=== PATIENT | female | born 1970 | race Two or more races ===

== ENCOUNTER 2025-04-22 19:34 | Outpatient (REF) | payer OTHER, SELFPAY ==
--- OUTSIDE RECORDS SUMMARY | 2024-09-03 07:30 | XMS_ITS ---
Author Organization [facility] [place] Address [address] [place] [address] Care Team Providers Care Towel Hemmer Name Role Phone Heidi Guo Primary Care Provider Kaya Hughes [phone] REASON FOR VISIT 2 WK F/UP AKIKO, RONNY VELASQUEZ GL 04/08/24 Encounters Encounter Location Date Provider Diagnosis [facility] [place] for Dig[facility]ive [facility] Disease [facility] [address] [facility] [facility] [place] [address] 09/03/2024 Kaya Hughes Plan Of Treatment Next Appt Details Provider Name:Kaya viramontes, 05/09/2025 02:15:00 PM, [address], [address], [place], [address], Provider Name:Heidi pope, 06/02/2025 02:30:00 PM, [address] [place], [address], Progress Notes * Taylor WALTERS MDOB: (55 yo F)Acc No.[id number]:09/03/2024 UNLOCKED PROGRESS NOTE Established Patient: Dena COLBERT Taylor Lyons :?EMMANUELLE EnriqueOB:1970???Age:54 Y ???Sex:FemaleDate:09/03/2024Phone:[phone]:[address] [place] [address], [id number]:Heidi Guo Subjective: * Chief Complaints: * 1 . 2 WK F/UP EEVA HAYNES, GL 04/08/24. * Medical History: Objective: * Vitals: Assessment: Plan: * Treatment: * * Electronic signature of ARSH Enrique, [id number] on 04/22/2025 at 07:39 PM ESTSign off status: PendingVisit Status:?R/S (Rescheduled) * Provider: ARSH Silva Date: 0 09/03/2024 Generated for Printing/Faxing/eTransmitting on:?04/22/2025 07:39 PM EST
--- OUTSIDE RECORDS SUMMARY | 2024-09-30 02:45 | XMS_ITS ---
Author Organization [facility] in [place] Address [address] [place] [address] Care Team Providers Care Truckload Owner Operator Name Role Phone Heidi Guo Primary Care Provider Michoacano Pat [phone] REASON FOR VISIT VCE, ABIGAIL, MELSEA, EVA GUO, DUSTIN 04/08/24 Encounters Encounter Location Date Provider Diagnosis [facility] [address] [facility] [place] [address] 09/30/2024 Michoacano Pat Plan Of Treatment Next Appt Details Provider Name:Kaya viramontes, 05/09/2025 02:15:00 PM, [address], [place], [address], Provider Name:Heidi pope, 06/02/2025 02:30:00 PM, [address] [place], [address], Progress Notes * Taylor WALTERS MDOB: (55 yo F)Acc No.[id number]:09/30/2024 UNLOCKED PROGRESS NOTE OP Note Patient: Dena COLBERT Taylor Lyons :?Michoacano Pat MDDOB:1970???Age:54 Y ???Sex:FemaleDate:09/30/2024Phone:[phone]:[address] [place] [address], [id number]:Heidi Nuñez In:08:27 AM ESTCheck Out: 08:27 AM EST Subjective: * Chief Complaints: * 1 . VCE, ABIGAIL, MELENA, RONNY, AETNA, GL 04/08/24. * Medical History: Objective: * Vitals: Assessment: Plan: * Treatment: * * Electronic signature of Michoacano Pat MD, [id number] on 04/22/2025 at 07:40 PM ESTSign off status: PendingVisit Status:?CHK (Check Out) * Provider: Steph Pat MD Date: 0 09/30/2024 Generated for Printing/Faxing/eTransmitting on:?04/22/2025 07:40 PM EST
--- OUTSIDE RECORDS SUMMARY | 2024-10-22 08:30 | XMS_ITS ---
Author Organization [facility] in [place] Address [address] [place] [address] Care Team Providers Care Horse Rancher Name Role Phone Heidi Guo Primary Care Provider Provider, Lab Unavailable [phone] REASON FOR VISIT NM Encounters Encounter Location Date Provider Diagnosis [facility] [address] [place] [address] 10/22/2024 Lab Provider Plan Of Treatment Next Appt Details Provider Name:Kaya viramontes, 05/09/2025 02:15:00 PM, [address] [place] [place], [place], [address], Provider Name:Heidi pope, 06/02/2025 02:30:00 PM, [address] [place], [address], Progress Notes * Taylor WALTERS MDOB: (55 yo F)Acc No.[id number]:10/22/2024 UNLOCKED PROGRESS NOTE Progress Note Patient: Dena BENTONTaylor MCCAULEY :?Lab ProviderDOB:1970???Age:54 Y???Sex: FemaleDate:10/22/2024Phone:[phone]:[address] [place] [address]Pcp:Heidi A HaynesCheck In:01:31 PM ESTCheck Out:01:46 PM EST Subjective: * Chief Complaints: * 1 . NM. * Medical History: Objective: * Vitals: Assessment: Plan: * Treatment: * * Electronic signature of Lab Provider on 04/22/2025 at 12:48 PM ESTSign off status: PendingVisit Status:?CHK (Check Out) * Provider: Jess whitlock Provider Date: 0 10/22/2024 Generated for Printing/Faxing/eTransmitting on:?04/22/2025 12:48 PM EST
--- OUTSIDE RECORDS SUMMARY | 2025-04-09 08:00 | XMS_ITS | Continuity of Care Document ---
Author Organization [facility] Address [address] [place] [address] [place] [address] Phone Care Team Providers Care Pickle Water Pump Operator Name Role Phone Kobe Cobos MD Unavailable Unavailable Procedures Procedure Date OFFICE/OUTPATIENT VISIT, EST POSTOP FOLLOW-UP VISIT POSTOP FOLLOW-UP VISIT POSTOP FOLLOW-UP VISIT LAP GASTRIC BYPASS/REYNA-EN-Y Gastric Bypass OFFICE/OUTPATIENT VISIT, EST PSYCL TST EVAL PHYS/QHP PSYCL/NRPSYC TST PHY/QHP PSYCL/NRPSYC TST PHY/QHP OFFICE/OUTPATIENT VISIT, [facility] Advance Directives Directive Yes / No Effective Date File Name No Information Encounters Encounter Description Practice Location Reason(s) For Visit Diagnoses Date Provider Providers Copied on Encounter OFFICE/OUTPATI ENT VISIT, EST [facility], [address], [place], [place], [id number], [place] tel:[phone] [facility] No Information Chandrika Bullock. [address], [place], [place], [id number], [place]. tel:[phone] Referring Provider: Kobe Resendiz, [address], [place], [address]. tel:[phone] [facility], [address] [place] [address] [address], [place], [place], [id number], [place] tel:[phone] [facility] No Information Terrence Corbett. [address] [facility] [address], [place], [place], [id number], [place]. tel:[phone] Referring Provider: Chelle Ocampo, [address] [facility] [address], [place], [address]. tel:[phone] [facility], [address] [place] [address] [address], [place], [place], [id number], [place] tel:[phone] [facility] No Information Terrence Corbett. [facility] [address] [facility] [address], [place], [place], [id number], [place]. tel:[phone] Referring Provider: Chelle Ocampo, [address] [place] [address] [address], [place], [address]. tel:[phone] [facility], [address] [place] [address] [address], [place], [place], [id number], [place] tel:[phone] [facility] No Information Terrence Corbett. [address], [place], [place], [id number], [place]. tel:[phone] Referring Provider: Chelle Ocampo, [address] [place] [address] [address], [place], [address]. tel:[phone] [facility], [address] [place] [address] [address], [place], [id number], [place] tel:[phone] [facility] No Information Chandrika Bullock. [address], [place], [place], [address], [place]. tel:[phone] Referring Provider: Kobe Resendiz, [address], [place], [address]. tel:[phone] [facility], [address], [place], [place], [id number], [place] tel:[phone] [facility] No Information Terrence Corbett. [address] [facility] [address], [facility] [place], [id number], [place]. tel:[phone] Referring Provider: Chelle Ocampo, [address], [place], [address]. tel:[phone] OFFICE/OUTPATI ENT VISIT, [facility] mii [facility], [address] [address], [place], [place], [id number], [place] tel:[phone] [facility] No Information Chandrika Bullock. [address], [facility] [place], [id number], [place]. tel:[phone] Referring Provider: Kobe Resendiz, [address] [facility] [address], [place], [address]. tel:[phone] [facility], [address] [facility] [address] [facility] [address], [place], [place], [address], [place] tel:[phone] [facility] No Information Solitario Edmonds. [address], [facility] [place], [id number], [place]. tel:[phone] Referring Provider: Kendal Jerez, [facility] [address] [facility] [address], [place], [address]. tel:[phone] OFFICE/OUTPATI ENT VISIT, [facility] mii [facility], [address] [facility] [address], [facility] [place], [id number], [place] tel:[phone] [facility] No Information Chandrika Bullock. [address], [place], [place], [id number], [place]. tel:[phone] Referring Provider: Kobe Resendiz, [address], [place], [address]. tel:[phone] Family History Family Member Type Diagnosis Age At Onset No Information Payers Payer name Insurance type Covered libertarian ID Sue peace(s) Cindy [id number] Social History Type Description Quantity Date Captured Comments Sex Female Smoking Status No Information Chief Complaint And Reason For Visit No Information Reason For Referral Reason For Referral No Information Plan Of Treatment Date Type Action Status Appointment Taylor Schultz BOOKED History Of Present Illness Encounter Date Complaint History Of Prese nt Illness No Information Functional Status Date Functional Assessmen t No Information Instructions Date Instruction Additional Infor mation No Information Assessments Type Assessment Date No Information Patient Care Teams Name Effective Dates (start - stop) Status Members No Information
--- OUTSIDE RECORDS SUMMARY | 2025-04-22 13:00 | XMS_ITS | Encounter Summary ---
Author Organization [facility] Address [address] [place] [address] Care Team Providers Care Gas Engine Operator Generators Name Role Phone Unavailable Primary Care Provider Unavailabl e Reason for Visit * ReasonCommentsGynecologic Exam Encounter Details DateTypeDepartmentCare Team (Latest Contact Info)Agztmdjenso13/25/2025 1:00 PM ESTOffice Visit [facility] [address] [place] [address] Arnaldo An DO [address] [place] [address] Well woman exam with routine gynecological exam; Encounter for screening mammogram for malignant neoplasm of breast; Postmenopausal state; Pain in female genitalia on intercourse; Atrophic vaginitis Social History Tobacco UseTypesPacks/DayYears UsedDateSmoking Tobacco: NeverSmokeless Tobacco: Never Tobacco Cessation:Counseling Given: Not Answered Alcohol UseStandard Drinks/WeekCommentsNot Currently0 (1 standard drink = 0.6 oz pure alcohol)CommentsNoSex and Gender InformationValueDate RecordedSex Assigned at BirthNot on fileLegal KvrTwtrfy85/15/2023 8:00 PM EDTGender Identity Not on fileSexual OrientationNot on filedocumented as of this encounter Last Filed Vital Signs Vital SignReadingTime TakenCommentsBlood Vtmfvllz147/80106/22/2024 1:26 PM EST Pulse--Temperature--Respiratory Rate--Oxygen Saturation--Inhaled Oxygen Concentration--Ughhyv82.4 kg (186 lb)04/22/2025 1:26 PM ESTHeight--Body Mass Index37.5706/ 2:05 PM EDTdocumented in this encounter Plan of Treatment NameTypePriorityAssociated DiagnosesOrder ScheduleBilateral screening mammogram ImagingRoutine Encounter for screening mammogram for malignant neoplasm of breast Expected: 04/22/2025, Expires: 06/22/2026DEXA bone densityImagingRoutine Postmenopausal state Expected: 04/22/2025 (Approximate), Expires: 04/22/2026THIN PREP TIS PAP AND HR HPV DNAPathology and CytologyRoutine Well woman exam with routine gynecological exam Ordered: 04/22/2025documented as of this encounter Visit Diagnoses Diagnosis Well woman exam with routine gynecological exam Routine gynecological examination Encounter for screening mammogram for malignant neoplasm of breast Postmenopausal state Asymptomatic postmenopausal status (age-related) (natural) Pain in female genitalia on intercourse Dyspareunia Atrophic vaginitis Postmenopausal atrophic vaginitis documented in this encounter
--- OUTSIDE RECORDS SUMMARY | 2025-04-22 19:39 | XMS_ITS | Encounter Summary ---
Author Organization [facility] Address [address] [place] [address] Care Team Providers Care Quality Control Chemist Name Role Phone Unavailable Primary Care Provider Unavailabl e Encounter Details DateTypeDepartmentCare Team (Latest Contact Info)Tjjxqmhdcab62/25/2025Telephone [facility] [address] [place] [phone] Arnaldo An DO [address] [place], [facility] Social History Tobacco UseTypesPacks/DayYears UsedDateSmoking Tobacco: NeverSmokeless Tobacco: NeverAlcohol UseStandard Drinks/WeekCommentsNot Currently0 (1 standard drink = 0.6 oz pure alcohol)CommentsNoSex and Gender InformationValueDate RecordedSex Assigned at BirthNot on fileLegal SmsEmeocu56/15/2023 8:00 PM EDT Gender IdentityNot on fileSexual OrientationNot on filedocumented as of this encounter Miscellaneous Notes * Telephone Encounter - Mary Marino LPN - 04/22/2025 3:51 PM EST New order sent at this time in regards to patient. documented in this encounter Plan of Treatment Not on file documented as of this encounter Visit Diagnoses Diagnosis Unspecified dyspareunia Postmenopause atrophic vaginitis Postmenopausal atrophic vaginitis documented in this encounter
--- OUTSIDE RECORDS SUMMARY | 2025-04-22 19:39 | XMS_ITS | Clinical Summary ---
Author Organization [facility] Address [address] [place] [address] Care Team Providers Care Template Maker Name Role Phone Heidi Guo MD Primary Care Provider [phone] Allergies Active AllergyReactionsCriticalityNoted DateCommentsDiphenhydramine HclOther: See Jymldmgh57/18/2014 Uncontrollable shaking DukmclnbHiwk37/18/2014Penicillin GRas06/15/2013CodeineShortness of Breath 04/15/2014 Medications * This document contains information received from the source organization and may not represent a complete record from that organization. MedicationSigDispense QuantityRefillsLast FilledStart DateEnd DateStatus aspirin, enteric coated (ASPIRIN, ENTERIC COATED) 81 mg EC tablet Take 81 mg by mouth once daily.Active lisinopril-hydrochlorothiazide (PRINZIDE, ZESTORETIC) 20-25 mg per tablet Take 1 tablet by mouth once daily.Active sertraline (ZOLOFT) 100 mg tablet Take 150 mg by mouth once daily.Active multivitamin tablet Take 1 tablet by mouth once daily.Active CALCIUM CARBONATE (CALCIUM 600 ORAL) Take 600 mg by mouth twice daily.Active metFORMIN ER (GLUCOPHAGE XR) 500 mg 24 hr tablet Take 1,000 mg by mouth twice daily. Active Phentermine HCl 37.5 mg tablet Indications:Obesity, morbid, BMI 40.0-49.9 ([facility])Take 1 tablet by mouth once daily. BP 130/78 mmHg Pulse 84 Wt 99.973 kg (220 lb 6.4 oz) LMP 03/12/2014 Body mass index is 44.49 kg/(m^2). 30 tablet Active potassium chloride ER (K-DUR, KLOR-CON) 10 mEq tablet Indications:Obesity, morbid, BMI 40.0-49.9 (HCC),Pituitary adenoma (HCC), Hyperandrogenism,Essential hypertension with goal blood pressure less than 130/80Take 1 tablet by mouth once daily. 30 tablet Active Phentermine HCl (ADIPEX-P) 37.5 mg tablet One a day BMI 49 30 tablet 08/02/2016Active spironolactone (ALDACTONE) 100 mg tablet TAKE 1 TABLET BY MOUTH EVERY DAY 30 tablet 08/02/2018Active glipiZIDE (GLUCOTROL) 10 mg tablet Take 10 mg by mouth daily with breakfast.Active semaglutide (OZEMPIC) 1 mg/dose (2 mg/1.5 mL) pen injector Inject 1 mg subcutaneously one time a week.Active Active Problems ProblemNoted DateDiagnosed KuulHldlzumzismlecwc54/20/2016Pituitary adenoma 10/16/2015Essential hypertension with goal blood pressure less than 130/80 10/16/2015Obesity, morbid, BMI 40.0-49.9010/16/2015 Family History Medical HistoryRelationCommentsDiabetesFatherHypertensionFatherNo Ocular Disease FatherHypertensionMotherNo Ocular DiseaseMotherpituitary tumor ([place])[other] OtherauntGlaucomaPaternal GrandfatherDiabetesPaternal GrandmotherGlaucomaSon 1 GlaucomaSon 2RelationStatusCommentsFatherMotherOtherPaternal GrandfatherPaternal GrandmotherSon 1AliveSon 2Alive Social History Tobacco UseTypesPacks/DayYears UsedDateSmoking Tobacco: FormerSmokeless Tobacco: Never Comments:a pack in a lifetim e Alcohol UseStandard Drinks/WeekCommentsYes1.3 (1 standard drink = 0.6 oz pure alcohol)CommentsNoSex and Gender InformationValueDate RecordedSex Assigned at IjnovGpkfxu51/24/2021 10:54 AM EDTLegal HawThhnto56/02/2012 10:15 AM ESTGender GtnkrtpuLhesba32/24/2021 10:54 AM EDTSexual OrientationNot on file Last Filed Vital Signs Vital SignReadingTime TakenCommentsBlood Fupgsmkn576/7610/ 3:11 PM EDT Tslgw301703/22/2021 3:11 PM JMPBnekovwjcxs33.3 ??C (99.1 ??F)03/22/2021 3:11 PM EDTRespiratory Jxgs1277 3:03 PM EDTOxygen Pmhwiyatna04%09/03/2015 3:03 PM EDTInhaled Oxygen Concentration--Ocvief267.1 kg (234 lb)03/22/2021 3:11 PM KFMGjoahn632.4 cm (5')03/22/2021 3:11 PM EDTBody Mass Index45. 3:11 PM EDT Plan of Treatment Health MaintenanceDue DateLast DoneCommentsAnxiety Cofcfcwsm28/21/1988Depression Tesntvhvu41/21/1988HIV Inhtcxmcv10/21/1988Hepatitis C Wqithlpnn26/21/1988 DTaP,Tdap,Td Vaccine (1 - Tdap)1989Hepatitis B Vaccine (1 of 3 - 19+ 3- dose series)1989Cervical Cancer Vplbsrdbn02/21/1991CT Colonography 2015Cologuard (FIT-DNA)03/18/20154833Jgbqvflhmba33/21/2015Colorectal Cancer Cwntjrlgd34/21/2015Fecal Occult Blood2015Lipid Hftykinxi09/21/2015 Ijeztwocpfikd79/21/2015Pneumococcal Vaccine: 50+ (1 of 1 - PCV)2020 Shingrix Vaccine (1 of 2)2020Mammogram Ltessagze96/ Diabetes Ulzuvpift53/, 02/23/2021, 10/29/2020, Additional history existsCovid-19 Vaccine ( - 2024- season)/, 10/15/2020Influenza Vaccine (#1) Procedures Procedure NamePriorityDate/TimeAssociated DiagnosisCommentsCOMPREHENSIVE METABOLIC FLRYFRgksggv66/25/2021 4:04 PM EDT Stage 3a chronic kidney disease (HCC) from Last 3 Months or Most Recently Relevant to Health Maintenance Results * (ABNORMAL) COMP METABOLIC PANEL (03/22/2021 4:04 PM EDT)ComponentValueRef RangeTest MethodAnalysis TimePerformed AtPathologist SignatureProtein, Total 7.36.3 - 8.0 g/dL03/22/2021 9:30 PM EDTCleveland Clinic LaboratoriesAlbumin4.7 3.9 - 4.9 g/dL03/22/2021 9:30 PM [facility]TC[facility] HykanpvfbtjrUtbybth53.0 8.5 - 10.2 mg/dL03/22/2021 9:30 PM EDTCfirelands [facility] Clinic LaboratoriesBilirubin, Total0.30.2 - 1.3 mg/dL03/22/2021 9:30 PM [facility] Alkaline Eyimbzwnqbi6413 - 123 U/L1 9:30 PM EDTCfirelands [facility] VhjnlikzykyhUOY6261 - 35 U/L1 9:30 PM EDGood [facility] HjnaqfdamlpbMlgiqnm066(H)74 - 99 mg/dL03/22/2021 9:30 PM EDC[facility] LaboratoriesComment: The [place] Diabetes Association (ADA) provides guidance for cutoff values for fasting glucose and random glucose. The ADA defines fasting as no caloric intake for at least 8 hours. Fasting plasma glucose results between 100 to 125 mg/dL indicate increased risk for diabetes (prediabetes). Fasting plasma glucose results greater than or equal to 126 mg/dL meet the criteria for diagnosis of diabetes. In the absence of unequivocal hyperglycemia, results should be confirmed by repeat testing. In a patient with classic symptoms of hyperglycemia or hyperglycemic crisis, random plasma glucose results greater than or equal to 200 mg/dL meet the criteria for diagnosis of diabetes. Reference: Standards of Medical Care in Diabetes 2016, [place] Diabetes Association. Diabetes Care. 2016.39(Suppl 1). BUN22(H)7 - 21 mg/dL03/22/2021 9:30 PM EDGood [facility] Creatinine1.29(H)0.58 - 0.96 mg/dL03/22/2021 9:30 PM EDTCfire[facility] SgbysvtnkverBbqyfq679477 - 144 mmol/L1 9:30 PM EDTCleveland Clinic LaboratoriesPotassium4.43.7 - 5.1 mmol/L1 9:30 PM EDTCleveland Clinic UyldnpouuitqXpuhcuhl78398 - 105 mmol/L1 9:30 PM EDTC[facility] Clinic OwvpkjbjejeeUF41861 - 30 mmol/L1 9:30 PM EDTCleveland Clinic LaboratoriesAnion Zld608 - 18 mmol/L1 9:30 PM EDTC[facility] Clinic DilzobxutnfoGWJ289 - 38 U/L1 9:30 PM EDTC[facility] Clinic Laboratories eGFR- Zzprqcco7597/25/2021 9:30 PM EDTCleveland Clinic LaboratorieseGFR- All Other Races44.03/22/2021 9:30 PM EDTCleveland Clinic LaboratoriesComment: eGFR (Estimated GFR) Units of measure: mL/min/1.73 meters squared eGFR is derived from the reexpressed MDRD Study equation using the following parameters: serum creatinine, age, gender and race. The creatinine assay has been calibrated to be traceable to IDMS. An eGFR <60 mL/min/1.73m2 for >3 months is consistent with chronic kidney disease. Refer to KDOQI guidelines for clinical interpretation. In patients with unstable renal function, e.g. those with acute kidney injury, the eGFR may not accurately reflect actual GFR. Specimen (Source)Anatomical Location / LateralityCollection Method / Volume Collection TimeReceived TimeBloodBLOOD SPECIMEN / Etkkpzp1703/22/2021 4:04 PM EDT 03/22/2021 4:06 PM EDT Narrative Authorizing ProviderResult TypeResult StatusGeorge Jeremias RESTREPOLABORATORYFinal ResultPerforming OrganizationAddressCity/State/ZIP CodePhone Number [facility] [address] [place] [address] [facility] [address] [place] [address] from Last 3 Months or Most Recently Relevant to Health Maintenance Insurance [address] [place] [address] * Guarantor: Sue Walters TypeRelation to PatientDate of PhoneBilling BcfesrmMddrikacXpuv[address] [place] [address] Care Teams Team MemberRelationshipSpecialtyStart DateEnd Heidi Guo MD PCP - GeneralFamily Medicine10/05/11
--- OUTSIDE RECORDS SUMMARY | 2025-04-22 19:39 | XMS_ITS | Clinical Summary ---
Author Organization [facility] Address [address] [place] [address] Care Team Providers Care Mattress Stuffer Name Role Phone Unavailable Primary Care Provider Unavailabl e Allergies Active AllergyReactionsCriticalityNoted DateCommentsAcetaminophen-Codeine Angioedema,Rash,Shortness of znmpjwIhpo57/27/2019CodeineShortness of breathHigh 04/15/2014DiphenhydramineHives,Other04/15/2014 Other Reaction(s): Other: See Comments Uncontrollable shaking MorphineHives,Itching,Rash,GcestqweOix38/18/9508IkbakiuoteqMisiFaa77/18/2014 Shrimp ExtractShortness of breath,PczcoyqqGwgz97/27/2019 Jittery Medications MedicationSigDispense QuantityRefillsLast FilledStart DateEnd DateStatus Calcium Carbonate (CALCIUM 500 PO) Take 600 mg by mouth in the morning and 600 mg in the evening.Active glipiZIDE XL (Glucotrol XL) 10 MG 24 hr tablet TAKE 1 TABLET BY MOUTH EVERY DAY for 30Active metFORMIN (Glucophage) 1000 MG tablet 1 TABLET TWICE EACH DAY ORAL for 90Active Multiple Vitamins-Minerals (MULTIVITAMIN WOMEN PO) Active Thiamine HCl (VITAMIN B-1 PO) Active vitamin E 180 MG (400 UNIT) capsule Take 400 Units by mouth in the morning.Active Vitamin A (beta carotene) 3 MG (77523 UT) tablet Active spironolactone (Aldactone) 100 MG tablet Take 100 mg by mouth DailyActive sertraline (Zoloft) 100 MG tablet Take 100 mg by mouth DailyActive rosuvastatin (Crestor) 10 MG tablet Active omeprazole OTC (PriLOSEC OTC) 20 MG EC tablet Take 20 mg by mouth in the morning.Active metoclopramide (Reglan) 5 MG tablet TAKE 1 TABLET BY MOUTH THREE TIMES A DAY BEFORE MEALSActive lisinopril-hydroCHLOROthiazide 20-25 MG tablet Take 1 tablet by mouth in the morning.Active ferrous sulfate 325 (65 Fe) MG EC tablet Take 325 mg by mouth in the morning and 325 mg at noon and 325 mg in the evening. Take with meals.Active empagliflozin (Jardiance) 10 MG Take 10 mg by mouth in the morning.ctive albuterol HFA 90 mcg/act inhaler INHALE 1 PUFF INTO THE LUNGS EVERY 4 HOURS NEEDED FOR 30 DAYS08/21/2024tive semaglutide (Rybelsus) 14 MG tablet Take 14 mg by mouth in the morning. Take before meals.Active venlafaxine XR (Effexor XR) 37.5 MG 24 hr capsule Indications:Mood changes,Hot flashesTake 1 capsule (37.5 mg) by mouth Daily Do not crush or chew. 30 capsule ctive Estradiol 0.01 % cream Indications:Unspecified dyspareunia,Postmenopause atrophic vaginitisInsert 2 g into the vagina 1 (one) time per week 42.5 g tive estradiol (Estrace) 0.1 MG/GM vaginal cream Indications:Pain in female genitalia on intercourse,Atrophic qamrhgdgr6q vaginal daily for 2 weeks, then 2 times weekly following initial 2 weeks 42.5 g Discontinued Estradiol (Estrace) 0.01 % cream Indications:Pain in female genitalia on intercourse,Atrophic vaginitisInsert 1 applicator into the vagina 1 (one) time per week 42.5 g Discontinued Encounters DateTypeDepartmentCare JaskKtnhkvpaiel91/25/2025 1:00 PM ESTOffice Visit [facility] [address] [place] [address] [place] [address] Arnaldo An, DO Well woman exam with routine gynecological exam; Encounter for screening mammogram for malignant neoplasm of breast; Postmenopausal state; Pain in female genitalia on intercourse; Atrophic pbrvofmql82/25/2025Telephone [facility] [address] [phone] Juve Arnaldo, DO 04/22/2025amboo flowsheet [facility] [address] [place] [address] Juve Arnaldo, DO 04/21/2025Travelfrom Last 3 Months Family History Medical HistoryRelationNameCommentsHeart failureFatherSteveHypertensionFather SteveDiabetesFather's Brother 1Dan & BasilHypertensionFather's Brother 1Dan & BasilDiabetesFather's Brother 2Dan & BasilHypertensionFather's Brother 2Dan & BasilDiabetesFather's Sister 1ChrisHypertensionFather's Sister 1ChrisDiabetes Father's Sister 2ChrisHypertensionFather's Sister 2ChrisHypertensionMother JuanitaRheum arthritisMother's Sister 1Juanita & ElidiaBreast cancerMother's Sister 2Juanita & TriniRheum arthritisMother's Sister 3Juanita & ElidiaBreast cancerMother's Sister 4Juanita & TriniStrokeMother's Sister 5ElidiaDiabetes Paternal GrandmotherVirginiaRheum arthritisSister 1RosieRheum arthritisSister 2 RosieRelationNameStatusCommentsFatherSteveAliveFather's Brother 1Dan & Basil AliveFather's Brother 2Dan & BasilAliveFather's Sister 1ChrisAliveFather's Sister 2ChrisAliveMotherJuanitaAliveMother's Sister 1Juanita & ElidiaAlive Mother's Sister 2Juanita & TriniAliveMother's Sister 3Juanita & ElidiaAlive Mother's Sister 4Juanita & TriniAliveMother's Sister 5ElidiaAlivePaternal GrandmotherVirginiaAliveSister 1RosieAliveSister 2RosieAlive Social History Tobacco UseTypesPacks/DayYears UsedDateSmoking Tobacco: NeverSmokeless Tobacco: Never Tobacco Cessation:Counseling Given: Not Answered Alcohol UseStandard Drinks/WeekCommentsNot Currently0 (1 standard drink = 0.6 oz pure alcohol)CommentsNoSex and Gender InformationValueDate RecordedSex Assigned at BirthNot on fileLegal ZvmLzeizl38/15/2023 8:00 PM EDTGender Identity Not on fileSexual OrientationNot on file Last Filed Vital Signs Vital SignReadingTime TakenCommentsBlood Dkcvqhhx196/80106/22/2024 1:26 PM EST Pulse--Temperature--Respiratory Rate--Oxygen Saturation--Inhaled Oxygen Concentration--Onflsx41.4 kg (186 lb)04/22/2025 1:26 PM CXUEdtpta537.9 cm (4' 11 )11/19/2024 2:05 PM EDTBody Mass Index37.57011/19/2024 2:05 PM EDT Plan of Treatment Not on file Insurance [facility] Address: [facility] [id number] [place] [address]
--- OUTSIDE RECORDS SUMMARY | 2025-04-22 19:39 | XMS_ITS | Encounter Summary ---
Author Organization [facility] Address [address] [place] [address] Care Team Providers Care Oral Therapist Name Role Phone Unavailable Primary Care Provider Unavailabl e Encounter Details DateTypeDepartmentCare Team (Latest Contact Info)Tgpodstracz40/24/2025Travel Social History Tobacco UseTypesPacks/DayYears UsedDateSmoking Tobacco: Never Assessed CommentsNoSex and Gender InformationValueDate RecordedSex Assigned at BirthNot on fileLegal FppRniwtm43/15/2023 8:00 PM EDTGender IdentityNot on fileSexual OrientationNot on filedocumented as of this encounter Plan of Treatment Not on file documented as of this encounter Visit Diagnoses Not on filedocumented in this encounter
--- OUTSIDE RECORDS SUMMARY | 2025-04-22 19:40 | XMS_ITS | Clinical Summary ---
Author Organization [facility] Address [address] [place] [address] Phone Care Team Providers Care Supervisor Roving Name Role Phone Heidi Guo MD Primary Care Provider [phone] Allergies Active AllergyReactionsCriticalityNoted DateCommentsAcetaminophen-Codeine Shortness of breath,Angioedema,EmfvGcog64/27/2019CodeineShortness of breathHigh 04/15/20146224Apzpllwsgtws-Hld-NbfadefpdublcQznlwgifz of breath,Anxiety,Palpitations High04/24/2019 shakes Diphenhydramine HclUnknown,Other04/15/2014 Uncontrollable shaking MorphineHives,Itching,Rash,MsvxsvmvVkc54/18/3925YletbifrihdGfljIvj54/18/2014 Shellfish Containing ProductsHives,Shortness of breath,GysoxwdGofn55/27/2019 Jittery Medications MedicationSigDispense QuantityRefillsLast FilledStart DateEnd DateStatus cholecalciferol (Vitamin D-3) 50 mcg (2,000 unit) capsule Take 1 capsule (50 mcg) by mouth once daily.06/17/2022ctive dicyclomine (Bentyl) 10 mg capsule Take 1 capsule (10 mg) by mouth 3 times a day as needed.02/14/2023ctive glipiZIDE XL (Glucotrol XL) 10 mg 24 hr tablet Take 1 tablet (10 mg) by mouth once daily with breakfast.04/29/2023ctive lisinopriL-hydrochlorothiazide 20-25 mg tablet Take 1 tablet by mouth once daily.04/28/2023ctive metFORMIN (Glucophage) 1,000 mg tablet Take 1 tablet (1,000 mg) by mouth 2 times daily (morning and late afternoon). 04/28/2023ctive metoclopramide (Reglan) 5 mg tablet 01/29/2023ctive sertraline (Zoloft) 100 mg tablet Take 2 tablets (200 mg) by mouth once daily.Active spironolactone (Aldactone) 100 mg tablet Take 1 tablet (100 mg) by mouth once daily.04/29/2023ctive omeprazole (PriLOSEC) [address] capsule Indications:Bariatric surgery statusTake 1 capsule (40 mg) by mouth once daily in the morning. Take before meals. Do not crush or chew. 30 capsule ctive vitamin E 180 mg (400 unit) capsule Take by mouth once daily.09/05/2023ctive Rybelsus 14 mg tablet tablet TAKE 1 TABLET BY MOUTH DAILY 30 MINUTES BEFORE FIRST FOOD OR BEVERAGE OR MEDICINE OF THE DAY09/05/2023ctive rosuvastatin (Crestor) 10 mg tablet Indications:Diabetes mellitus type II, non insulin dependent (Multi),Elevated coronary artery calcium scoreTake 1 tablet (10 mg) by mouth once daily. 30 tablet 11009/26/2023ctive empagliflozin (Jardiance) 10 mg tablet Indications:Stage 2 chronic kidney diseaseTake 1 tablet (10 mg) by mouth once daily. 90 tablet 304/504/6Active Active Problems ProblemNoted DateDiagnosed DateSleep ofzeezkfyav85/13/3491Ltyxmtb11/13/2024OSA (obstructive sleep apnea)07/11/2023Inadequate sleep cvyswho3007/11/2023epressive yjbgsqdt98/08/2024KD (chronic kidney disease)06/08/2023iabetic acidosis, type II06/08/20234310Ysstflldhtapb84/11/5526Pxupotqhiupyuksnyu86/11/2024ituitary llnjivxx23/11/2024Type 2 diabetes gfioapgt77/11/2024Vitamin D deficiency 06/08/2023ariatric surgery lswhji5405/30/2023reoperative sheebqtmo41/02/2024 Encounter for vitamin deficiency nbzbynybf02/02/2024Morbid dulxkpv4105/30/2023MI 45.0-49.9, adult/rimary uoklevsywuai06/20/2016 Assessment & Plan (07/25/2023 2:04 PM EST): Bp well controlled Bfwdvrgmxnrzpgmm79/20/2016Pituitary jbuxrjt4510/16/2015 Resolved Problems ProblemNoted DateDiagnosed DateResolved DateChest pain Psychological factors affecting medical hcbmvcnua20 Immunizations ImmunizationAdministration DatesNext DueInfluenza, Jdasstujhki21/14/2019 Family History Medical HistoryRelationNameCommentsDepressionBrotherSteveHearing lossBrother SteveHypertensionBrotherSteveEarly natural deathFatherEstebanDepressionMother JuanitaDepressionSisterRosieHypertensionSisterRosieGenetic TestingSonLogan RelationNameStatusCommentsBrotherSteveFatherEstebanMotherJuanitaSisterRosieSon Jose Social History Tobacco UseTypesPacks/DayYears UsedDateSmoking Tobacco: NeverSmokeless Tobacco: Never Tobacco Cessation:Counseling Given: Not Answered Alcohol UseStandard Drinks/WeekCommentsNot Currently1 (1 standard drink = 0.6 oz pure alcohol)Had about 4 drinks in the last yearPHQ-2AnswerDate RecordedPatient Health Questionnaire-2 Kapxf939CommentsNoSex and Gender InformationValueDate RecordedSex Assigned at BirthNot on fileLegal SexFemale 04/23/2022 2:37 PM ESTGender IdentityNot on fileSexual OrientationNot on file Last Filed Vital Signs Vital SignReadingTime TakenCommentsBlood Ukykxhbk021/7204 1:52 PM EDT Hwzss16083/30/2024 1:52 PM URMBdbrrbynewg51.6 ??C (97.8 ??F)08/10/2023 11:04 AM EDTRespiratory Ulpj888409/26/2023 1:52 PM EDTOxygen Xgjkiayain19%09/26/2023 1:52 PM EDTInhaled Oxygen Concentration--Jssbnb292 kg (238 lb)06/04/2024 10:24 AM EST Mclezg025.4 cm (5')06/04/2024 10:24 AM ESTBody Mass Index46.48006/04/2024 10:24 AM EST Plan of Treatment DateTypeDepartmentCare Team (Latest Contact Info)Spslodlpmxf11/26/2026 12:00 PM [facility] [address] [address] [place] [phone] [place] [address] [address] Department of Medicine-Endocrinology [place] [phone] Health MaintenanceDue DateLast DoneCommentsCT Npbiihjizcjb1970Colonoscopy 1970Colorectal Cancer Mefyogslx1970Diabetes: Urine Protein Screening 1970FIT-DNA (Cologuard)1970FIT1970HIV Nljgluboz1970 Wggfikxmbdejh1970Thyroglobulin Test1970Yearly Adult Physical 1970MMR Vaccines (1 of 1 - Standard series)1971Diabetes: Retinopathy Fjlsfrplk70/21/1980Hepatitis B Vaccines (1 of 3 - 19+ 3-dose series)1989 Pneumococcal Vaccine (1 of 2 - PCV)1989Cervical Cancer Aaaplpxff71/21/1991 HPV/Afaxep5103/18/1991Pap Smear1991DTaP/Tdap/Td Vaccines (1 - Tdap) 1992Zoster Vaccines (1 of 2)2020Diabetes: Hemoglobin A1C04/04/202406/09/2023Lipid Panel01501/04/2024, 06/09/2023Influenza Vaccine (#1) COVID-19 Vaccine (3 - season)506/, 10/15/20207259Mexzvzkvt52/19/064200/, 02/15/2024, 06/30/2022, Additional history existsHepatitis C MfdslfdhqIbcolzdhv99/09/2022Irritable Bowel Syndrome Gfhymmevlozq11/24/2024HIB VaccinesAged OutNo longer eligible based on patient's age to complete this topicHPV VaccinesAged OutNo longer eligible based on patient's age to complete this topicHepatitis A VaccinesAged OutNo longer eligible based on patient's age to complete this topicIPV VaccinesAged OutNo longer eligible based on patient's age to complete this topicMeningococcal VaccineAged OutNo longer eligible based on patient's age to complete this topic Rotavirus VaccinesAged OutNo longer eligible based on patient's age to complete this topic Procedures Procedure NamePriorityDate/TimeAssociated RffazukajEmyevtlcFHLMqaikgi60/24/2024 9:56 AM EST Bariatric surgery status Preoperative clearance HEMOGLOBIN Y1NMoomqpb18/12/2024 1:14 PM EST Bariatric surgery status Preoperative clearance Morbid obesity (Multi) LIPID RXDISCthgcrc53/12/2024 1:14 PM EST Bariatric surgery status Preoperative clearance Morbid obesity (Multi) HEPATITIS C IONQAOVJQeuycgl18/09/2022 12:50 PM EDT from Last 3 Months or Most Recently Relevant to Health Maintenance Results * EGD (06/21/2023 9:56 AM EST)Anatomical RegionLateralityModalityEndoscopy Specimen (Source)Anatomical Location / LateralityCollection Method / Volume Collection TimeReceived Time Narrative 06/21/2023 10:01 AM EST Table formatting from the original result was not included. Impression The middle third of the esophagus appeared normal. The stomach appeared normal. The duodenum appeared normal. The cardia appeared normal. Abnormal mucosa Findings The middle third of the esophagus appeared normal. Regular Z-line 38 cm from the incisors; performed cold forceps biopsy The stomach appeared normal. The duodenum appeared normal. The cardia appeared normal. Mild, patchy erythematous mucosa in the stomach, consistent with gastritis; Abnormal mucosa in the Z-line; Recommendation Await pathology results Follow up with me in clinic Keep on losing weight Take omeprazole daily Follow the pouch rules: - - Eat 5 small meals per day (3 meals and 2 snacks) - Take in at least 60 g protein daily (try to get through lean meats, dairy, legumes) - Eat 5 vegetables per day - No sweets, fruits are fine. ??Berries and citrus are lower glycemic index fruits -Limit rice, bread, pasta and potatoes. ??These should only be consumed after having your protein and vegetables - Drink at least 60 oz fluid daily, (non caffeinated, no carbonated beverages, sugar free) - Get 60 minutes of exercise daily Indication Preoperative clearance, Bariatric surgery status Staff Staff Role No Staff Documented Medications No administrations occurring from 904 to 953 on 06/21/23 Preprocedure A history and physical has been performed, and patient medication allergies have been reviewed. The patient's tolerance of previous anesthesia has been reviewed. The risks and benefits of the procedure and the sedation options and risks were discussed with the patient and family . All questions were answered and informed consent obtained. Details of the Procedure The patient underwent moderate sedation, which was administered by the procedural nurse. The patient's blood pressure, ECG, ETCO2, heart rate, level of consciousness, oxygen and respirations were monitored throughout the procedure. The scope was introduced through the mouth and advanced to the second part of the duodenum. Retroflexion was performed in the cardia. Prior to the procedure, the patient's H. Pylori status was unknown. The patient experienced no blood loss. The procedure was not difficult. The patient tolerated the procedure well. There were no apparent adverse events. Events Procedure Events Event Event Time ENDO SCOPE IN TIME 06/21/2023 ??9:45 AM ENDO SCOPE OUT TIME 06/21/2023 ??9:52 AM Specimens ID Type Source Tests Collected by Time 1 : R/O Hpylori Tissue STOMACH ANTRUM BIOPSY SURGICAL PATHOLOGY EXAM Rimma Cedillo MD MPH 06/21/2023 0949 2 : Esophagitis Tissue ESOPHAGUS DISTAL BIOPSY SURGICAL PATHOLOGY EXAM Rimma Cedillo MD MPH 06/21/2023 0950 Procedure Location [facility] [address] [facility] [address] [place] [address] Department Of [facility], ??[place] [address] Procedure Provider Rimma Cedillo MD MPH Authorizing ProviderResult TypeResult StatusSydney Spears MDENDOSCOPY PROCEDURE ORDERABLESFinal Result * (ABNORMAL) Hemoglobin A1C (06/09/2023 1:14 PM EST)ComponentValueRef RangeTest MethodAnalysis TimePerformed AtPathologist SignatureHemoglobin A1C8.9(H)see below %06/10/2023 2:22 AM [facility] LABEstimated Average Gimzidv380Dau Established mg/dL06/10/2023 2:22 AM [facility] LABSpecimen (Source)Anatomical Location / LateralityCollection Method / VolumeCollection TimeReceived Time BloodVenous blood specimen / UnknownVenipuncture / Yttqohe4906/09/2023 1:14 PM EST06/09/2023 1:14 PM EST Narrative [facility] - 06/10/2023 2:22 AM EST Diagnosis of Diabetes-Adults Non-Diabetic: < or = 5.6% Increased risk for developing diabetes: 5.7-6.4% Diagnostic of diabetes: > or = 6.5% Monitoring of Diabetes Age (y)....................... Therapeutic Goal (%) Adults: >18.........................<7.0 Pediatrics: 13-18...................<7.5 Pediatrics: 7-12....................<8.0 Pediatrics: 0-6..................... 7.5-8.5 [place] [employer]. Diabetes Care 33(S1), May 2009 Authorizing ProviderResult TypeResult StatusRimma Cedillo MD MPHLAB BLOOD ORDERABLESFinal ResultPerforming OrganizationAddressCity/State/ZIP CodePhone Number [facility] [address] [place] [phone] * (ABNORMAL) Lipid Panel (06/09/2023 1:14 PM EST)ComponentValueRef RangeTest MethodAnalysis TimePerformed AtPathologist AotmpxscoEcfoarpnhll5333 - 199 mg/dL LAB CHEMISTRY METHOD 06/09/2023 9:01 PM [facility] LABComment: ?Age ?Desirable ?? Borderline High ?? High 0-19 Y 0 - 169 170 - 199 >/= 200 20-24 Y 0 - 189 190 - 224 >/= 225 >24 Y 0 - 199 200 - 239 >/= 240 All ranges are based on fasting samples. Specific therapeutic targets will vary based on patient-specific cardiac risk. Pediatric guidelines reference:Pediatrics 2011, 128(S5).Adult guidelines reference: NCEP ATPIII Guidelines,AMARJIT 2001, 258:2486-97 Venipuncture immediately after or during the administration of Metamizole may lead to falsely low results. Testing should be performed immediately prior to Metamizole dosing. HDL-Epypyntumrh28.2mg/dL LAB CHEMISTRY METHOD 06/09/2023 9:01 PM [facility] LABComment: Age ? Very Low ?? Low ? Normal ?High ?? 0-19 Y < 35 < 40 40-45 ---- 20-24 Y ---- < 40 >45 ---- >24 Y ---- < 40 40-60 >60 Cholesterol/HDL Ratio3.9 LAB CHEMISTRY METHOD 06/09/2023 9:01 PM [facility] LABComment: Ref Values Desirable < 3.4 High Risk > 5.0 LDL Yqprrqgxib275(H)<=99 mg/dL LAB CHEMISTRY METHOD 06/09/2023 9:01 PM [facility] LABComment: ?Near ?? Borderline ?AGE ?Desirable ??Optimal ?High ? High ? Very High 0-19 Y 0 - 109 --- 110-129 >/= 130 ---- 20-24 Y 0 - 119 --- 120-159 >/= 160 ---- >24 Y 0 - 99 100-129 130-159 160-189 >/=190 WEEU534 - 40 mg/dL LAB CHEMISTRY METHOD 06/09/2023 9:01 PM [facility] JDZQtkdwhmazodow6841 - 149 mg/dL LAB CHEMISTRY METHOD 06/09/2023 9:01 PM [facility] LABComment: Age ? Desirable ?? Borderline High ?? High ? Very High 0 D-90 D ?19 - 174 ? ---- ? ---- ?---- 91 D- 9 Y 0 - 74 75 - 99 >/= 100 ---- 10-19 Y 0 - 89 90 - 129 >/= 130 ---- 20-24 Y 0 - 114 115 - 149 >/= 150 ---- >24 Y 0 - 149 150 - 199 200- 499 >/= 500 Venipuncture immediately after or during the administration of Metamizole may lead to falsely low results. Testing should be performed immediately prior to Metamizole dosing. Non HDL Heiqjsogtia2335 - 149 mg/dL LAB CHEMISTRY METHOD 06/09/2023 9:01 PM [facility] LABComment: ?Age ? Desirable ?? Borderline High ?? High ? Very High 0-19 Y 0 - 119 120 - 144 >/= 145 >/= 160 20-24 Y 0 - 149 150 - 189 >/= 190 ---- >24 Y 30 mg/dL above LDL Cholesterol goal Specimen (Source)Anatomical Location / LateralityCollection Method / Volume Collection TimeReceived TimeBloodVenous blood specimen / UnknownVenipuncture / Vfjtfgg7606/09/2023 1:14 PM EST06/09/2023 1:14 PM EST Narrative Authorizing ProviderResult TypeResult StatusRimma Cedillo MD MPHLAB BLOOD ORDERABLESFinal ResultPerforming OrganizationAddressCity/State/ZIP CodePhone Number [facility] [address] [place] [address] * Hepatitis C Antibody (09/04/2021 12:50 PM EDT)ComponentValueRef RangeTest MethodAnalysis TimePerformed AtPathologist SignatureHepatitis C AbNONREACTIVE NONREACTIVEUNIVERSITY [facility] LABComment: Results from patients taking biotin supplements or receiving high-dose biotin therapy should be interpreted with caution due to possible interference with this test. Providers may contact their local laboratory for further information. Specimen (Source)Anatomical Location / LateralityCollection Method / Volume Collection TimeReceived Time09/04/2021 12:50 PM EDT09/04/2021 11:52 PM EDT Narrative Authorizing ProviderResult TypeResult StatusAarandell Jha DOL BLOOD ORDERABLES Final ResultPerforming OrganizationAddressCity/State/ZIP CodePhone Number [facility] [address] [place] [phone] from Last 3 Months or Most Recently Relevant to Health Maintenance Insurance Care Teams Team MemberRelationshipSpecialtyStart DateEnd Date Heidi Guo MD [address] [place] [phone] [facility]07/27/21
--- OUTSIDE RECORDS SUMMARY | 2025-04-22 19:40 | XMS_ITS | Encounter Summary ---
Author Organization [facility] Address [address] [place] [address] Care Team Providers Care Referral Manager Name Role Phone Unavailable Primary Care Provider Unavailabl e Encounter Details DateTypeDepartmentCare Team (Latest Contact Info)Nnxxbetgqaj89/25/2025amboo flowsheet [facility] [address] [facility] [place] [phone] Arnaldo An DO [address] [place], [facility] Social History Tobacco UseTypesPacks/DayYears UsedDateSmoking Tobacco: NeverSmokeless Tobacco: NeverAlcohol UseStandard Drinks/WeekCommentsNot Currently0 (1 standard drink = 0.6 oz pure alcohol)CommentsNoSex and Gender InformationValueDate RecordedSex Assigned at BirthNot on fileLegal GxnAyxfjw15/15/2023 8:00 PM EDT Gender IdentityNot on fileSexual OrientationNot on filedocumented as of this encounter Plan of Treatment Not on file documented as of this encounter Visit Diagnoses Not on filedocumented in this encounter
--- OUTSIDE RECORDS SUMMARY | 2025-04-22 19:40 | XMS_ITS | Patient Health Record ---
Author Organization [facility] in [place] Address [address] [place] [address] Care Team Providers Care Plumbing Engineer Name Role Phone Brant Heidi Primary Care Provider Provider, Lab Unavailable [phone] Provider, Radiology Unavailable [phone] [place] Pat Unavailable [phone] Shaq Merida Unavailable [phone] Kaya Hughes Unavailable [phone] Allergies Allergen (clinical drug ingredient) Drug/Non Drug Allergy documented on EMR Reaction Allergy Type Onset Date Status Shellfish (FN) Shrimp (uncoded) Swelling hands/face Allerg y ActivediphenhydramineBenadrylJitteryDrug AllergyActivemorphineMorphine Sulfate hivesDrug AllergyActivepenicillin GPenicillin G Pot in DextroserashDrug Allergy ActiveTylenol with Codeine #3SOBDrug AllergyActive Results Component Value Reference Range Notes HEMOGLOBIN A1C - IN OFFICE Reviewed date:01/20/2025 01:20:53 PM Interpretation:7.0 Performing Lab: Notes/Report: 7.0 HEMOGLOBIN A1C - IN OFFICE 7.0 4.4 - 6.4 US Elastography Liver Reviewed date:01/07/2025 12:47:18 PM Interpretation: Performing Lab: Notes/Report: [facility] [address] [place] [address] Name: Antoine Lyons : 1970 Gender: F Referring Provider: Kaya Hughes Exam: ULTRASOUND ELASTOGRAPHY/LIVER - US ELAS Exam Start: 11/26/2024 Accn: [id number] HISTORY: Fatty change of the liver. PROCEDURE: Ultrasound elastography/liver The ultrasound technologist sonographer reports limited sensitivity due to patient body habitus and ultrasound penetration technical factors. COMPARISON: CT abdomen and pelvis with contrast 03/29/2024 FINDINGS: Nonspecific diffuse hyperechoic hepatic parenchyma suggests hepatocellular abnormality such as fatty infiltration more likely than fibrosis from hepatitis or cirrhosis. Quantitative elastography measurements mean 6.85 kPa and median 6.91 kPa. Negative for focal liver lesion or mass. Limited color and spectral Doppler ultrasound imaging of the main portal vein demonstrates normal hepatopetal flow and normal portal venous waveform. Gallbladder is surgically absent. Bajadero effect of the common bile duct 0.8 cm without intrahepatic biliary duct distention. IMPRESSION: 1. Fatty infiltration and mild fibrosis of the liver. 2. Elastography consistent with METAVIR score F 1, mild fibrosis. Transcribed by: Hannah Chen 11/26/2024 09:45 Sincerely, DIONNE BULL MD Electronically Signed: 11/26/2024 11:00 Thank you for referring TAYLOR WALTERS to the [facility]. Imaging Center - SHERIF&Abiola, [id number] WITH DIFF Reviewed date:10/26/2024 06:57:15 PM Interpretation: Performing Lab:[facility], [address], [place], [address] Notes/Report: FACILITY: [facility] [id number](3.80 - 10.60) x10^7soXWH3.73(4.20 - 5.40) x10^6seGQIGQSSVEU81.3 (12.0 - 16.0) G/OBCBHVWSCLUJ56.6(37.0 - 47.0) %MCV87.9(81.0 - 99.0) flMCH28.1 (27.0 - 33.0) VHBHTX73.0(30.0 - 37.0) G/DLRDW-SD44.4(37.0 - 49.0) btANQ746(130 - 400) x10^3ulNEUTROPHIL CT4.85(1.50 - 7.00) x10^3ulLYMPHOCYTE CT2.71(0.96 - 5.40) x10^3ulMONOCYTE CT0.58(0.10 - 0.90) x10^3ulEOSINOPHIL CT0.10(0.00 - 0.40) x10^3ulBASOPHIL CT0.05(0.00 - 0.16) x10^3ulIMMATURE GRAN CT0.09(0.00 - 0.11) x10^2gpPURN78.9() %LYMPS32.3() %MONOS6.9() %EOSINOPHIL1.2() %BASOS0.6() % IMMATURE GRANS (IG)1.1() %CMP (COMP MET SUE) w/eGFR CKD-EPI Reviewed date:12/04/2024 08:37:19 AM Interpretation: Performing Lab:[facility], [address], [place], [address] Notes/Report: FACILITY: [facility] [id number](74 - 106) MG/DLBUN25(4 - 25) MG/DLCREATININE, BLOOD1.08(0.52 - 1.04) MG/DLGFR by CKD-EPI61.0(60.0) ML/M1.5FTEFDS346(135 - 145) MMOL/L POTASSIUM4.8(3.5 - 5.1) MMOL/RZTYCJRCW052(98 - 110) MMOL/LCARBON TANCKSG04(22 - 30) MMOL/WEWHNXSL46.6(8.6 - 10.6) MG/DLALBUMIN4.8(3.5 - 5.0) G/DLTOTAL PROTEIN 7.3(6.3 - 8.2) G/DLALK PHOS72(38 - 126) U/LALT (SGPT)31(1 - 35) U/LAST (SGOT)30 (15 - 46) U/LBILIRUBIN, TOT0.5(0.2 - 1.3) MG/DLVITAMIN B12 LEVEL AND FOLATE (FOLIC ACID) Reviewed date:10/26/2024 07:02:20 PM Interpretation: Performing Lab:[facility], [address] [place], [address] Notes/Report: FACILITY: [facility] [id number](239 - 931) PG/MLFOLIC ACID7.0(2.8 - 20.0) NG/MLIRON, TIBC w SAT AND FERRITIN Reviewed date:10/26/2024 06:57:21 PM Interpretation: Performing Lab:[facility], Critical access hospital[address] [place], [address] Notes/Report: FACILITY: [facility] [id number](37 - 170) UG/MSZCFV457(250 - 450) UG/DL% XUBHQAMGPU27(20 - 55) % BFKMSUVA273.0(11.0 - 415.0) NG/MLVITAMIN D, 25 LEVEL (TOTAL) Reviewed date:10/26/2024 06:57:27 PM Interpretation: Performing Lab:[facility], Critical access hospital[address] [place], [address] Notes/Report: * * * VITAMIN D, 25 HYDROXY GENERAL GUIDELINE * * * DEFICIENCY = < OR = 20.0 NG/ML INSUFFICIENCY = 20.1 - 29.9 NG/ML SUFFICIENCY = 30.0 - 100.0 NG/ML TOXICITY = > 100.1 NG/ML FACILITY: [facility] [id number] D, 2570.0(30.0 - 100.0) NG/MLMAGNESIUM Reviewed date:10/26/2024 06:57:34 PM Interpretation: Performing Lab:[facility], Critical access hospital[address] [place], [address] Notes/Report: FACILITY: [facility] [id number](1.6 - 2.3) MG/DLHEMOGLOBIN A1C - IN OFFICE Reviewed date:06/27/2024 10:35:36 AM Interpretation:6.2 Performing Lab: Notes/Report: 6.2HEMOGLOBIN A1C - IN OFFICE6.24.4 - 6.4 Reason For Referral No Information Medications Medication SIG (Take, Route, Frequency, Duration) Notes Start Date End Date Status Sucralfate 1 GM/10ML 10 mL 1 hour before meals and at bedtime on an empty stomach Oral Four times a day; Duration: 30 days UnknownTest Strips -as directed 1-2 times per day; Duration: 12UnknownTest Strips -as directed daily; Duration: 30 days07/26/2024UnknownCalcium 500 MG1 tablet with meals Orally 3 times a dayActiveVitamin E67MleyldjZfg Touch Ultra Test Strips -as directed - Daily; Duration: 90 daysUnknownReglan 5 MG1 tablet before meals Orally TID; Duration: 30 daysUnknownRosuvastatin Calcium 10 MGOral; Duration: 30 DaysUnknownSpironolactone 100 MGTAKE 1 TABLET BY MOUTH EVERY DAY; Duration: 90 daysUnknownDexcom G7 Swimming Pool Attendant -as directed; Duration: 30 days Diabetes with labile blood dmamzp855ActiveVitamin D 50 MCG (2000 UT)1 tablet Orally Once a dayUnknownDexcom G7 Sensor -Change sensor every 10 days; Duration: 30 daysDiabetes with labile rwkgkw035ActiveVitamin E 400 UNIT1 capsule Orally Once a day; Duration: 30 daysUnknownJardiance 10 MG1 tablet Orally Once a dayActiveOmeprazole 20 MG1 tablet 30 minutes before morning meal Orally Once a day; Duration: 30 day(s)ActiveAlbuterol Sulfate HFA 108 (90 Base) MCG/ACT1 puff as needed Inhalation every 4 hrs; Duration: 30 days08/21/2024 UnknownCPAP -use as directed; Duration: 1 daysNew CPAP set at 16cm H2O with size Large Grace full face mask with headgear, tubings, filters, and heated humidifiers. Lifetime need.01/11/2023UnknownCPAP Supplies -Mask and TubingON PT'S OLD CPAP MACHINE : Change CPAP pressure to 16cm of H2O. Lifetime need. 01/11/2023UnknownDicyclomine HCl 10 MGTAKE 1 CAPSULE BY MOUTH THREE TIMES DAILY NEEDED; Duration: 90UnknownSertraline HCl 100 MG1 tablet Orally Once a day; Duration: 90 daysActiveThiamineActiveVenlafaxine HCl ER 37.5 MGTAKE 1 CAPSULE BY MOUTH DAILY DO NOT CRUSH OR CHEW. Oral daily; Duration: 30 daysActiveglipiZIDE ER 10 MGTAKE 1 TABLET BY MOUTH EVERY DAY WITH BREAKFAST; Duration: 90 days UnknownLancets -as directed daily; Duration: 30 days07/26/2024UnknownmetFORMIN HCl 1000 MGTAKE 1 TABLET BY MOUTH TWICE DAILY WITH A MEAL; Duration: 90 days Unknown Immunizations Vaccine Route Administration Date Status Comme nts Flu, Fluzone Intradermal (90 630) (5505-0524) Unknown 02/06/2020 Administered Social History Tobacco Use: Social History Observation Description Date Details (start date - stop date) Never Smoker NA - NA Tobacco Use/Smoking Question Answer Notes Patient is a nonsmoker Alcohol Screen (Audit-C) Question Answer Notes Did you have a drink containing alcohol in the p ast year? Yes How often did you have 6 or more drinks on one occasion in the past year?Never (0 point)How many drinks did you have on a typical day when you were drinking in the past year?1 or 2 drinks (0 point)Suklwv2XxghelzjivivroParyylapHeaums Will Question Answer Notes Living Will No, patient does not have a living will and no information was provided Section Notes: Lives with , 1 son an d her mother Lives with , 1 son an d her mother Lives with , 1 son an d her mother Lives with , 1 son an d her mother Lives with , 1 son an d her mother Lives with , 1 son an d her mother Lives with , 1 son an d her mother Lives with , 1 son an d her mother Lives with , 1 son an d her mother Lives with , 1 son an d her mother Lives with , 1 son an d her mother Lives with , 1 son an d her mother Lives with , 1 son an d her mother Lives with , 1 son an d her mother Lives with , 1 son an d her mother Lives with , 1 son an d her mother Lives with , 1 son an d her mother Lives with , 1 son an d her mother Lives with , 1 son an d her mother Lives with , 1 son an d her mother Lives with , 1 son an d her mother Lives with , 1 son an d her mother Lives with , 1 son an d her mother Lives with , 1 son an d her mother Lives with , 1 son an d her mother Lives with , 1 son an d her mother Lives with , 1 son an d her mother Lives with , 1 son an d her mother Lives with , 1 son an d her mother Lives with , 1 son an d her mother Lives with , 1 son an d her mother Lives with , 1 son an d her mother Lives with , 1 son an d her mother Lives with , 1 son an d her mother Lives with , 1 son an d her mother Lives with , 1 son an d her mother Lives with , 1 son an d her mother Lives with , 1 son an d her mother Lives with , 1 son an d her mother Lives with , 1 son an d her mother Lives with , 1 son an d her mother Lives with , 1 son an d her mother Lives with , 1 son an d her mother Lives with , 1 son an d her mother Lives with , 1 son an d her mother Lives with , 1 son an d her mother Lives with , 1 son an d her mother Lives with , 1 son an d her mother Lives with , 1 son an d her mother Lives with , 1 son an d her mother Lives with , 1 son an d her mother Lives with , 1 son an d her mother Lives with , 1 son an d her mother Lives with , 1 son an d her mother Lives with , 1 son an d her mother Lives with , 1 son an d her mother Lives with , 1 son an d her mother Lives with , 1 son an d her mother Lives with , 1 son an d her mother Lives with , 1 son an d her mother Lives with , 1 son an d her mother Lives with , 1 son an d her mother Lives with , 1 son an d her mother Lives with , 1 son an d her mother Lives with , 1 son an d her mother Lives with , 1 son an d her mother Lives with , 1 son an d her mother Problems Problem Type SNOMED Code ICD Code Onset Dates Problem Status W/U Status Risk Notes Problem Iron deficiency anemia (29871244 ) Iron deficiency anemia, unspecified (D50.9) ActiveconfirmedProblemObstructive sleep apnea syndrome (disorder) (81041756) Obstructive sleep apnea (adult) (pediatric) (G47.33)ActiveconfirmedProblem Leukocytosis (810008373)Elevated white blood cell count, unspecified (D72.829) ActiveconfirmedProblemMorbid obesity (disorder) (184850646)Morbid (severe) obesity due to excess calories (E66.01)ActiveconfirmedProblemChronic pain (48482384)Other chronic pain (G89.29)ActiveconfirmedProblemGastroparesis (700375177)Gastroparesis (K31.84)ActiveconfirmedProblemFatty liver (597018704) Fatty (change of) liver, not elsewhere classified (K76.0)ActiveconfirmedProblem Localized, primary osteoarthritis of the shoulder region (031043495)Primary osteoarthritis, left shoulder (M19.012)ActiveconfirmedProblemNon-traumatic partial tear of left rotator cuff (4530907219580006)Incomplete rotator cuff tear or rupture of left shoulder, not specified as traumatic (M75.112)Activeconfirmed ProblemEpigastric pain (77102928)Epigastric pain (R10.13)ActiveconfirmedProblem Nausea (407915151)Nausea (R11.0)ActiveconfirmedProblemParesthesia (finding) (66903216)Paresthesia of skin (R20.2)ActiveconfirmedProblemEssential hypertension (01909690)Essential hypertension (I10)ActiveconfirmedProblem Obstructive sleep apnea syndrome (56272266)CELIA (obstructive sleep apnea) (G47.33)ActiveconfirmedProblemInsomnia (942753553)Insomnia (G47.00)Active confirmedProblemVitamin D deficiency (88822573)Vitamin D deficiency (E55.9) ActiveconfirmedProblemGastroesophageal reflux disease without esophagitis (086249784)Gastroesophageal reflux disease without esophagitis (K21.9)Active confirmedProblemChronic fatigue syndrome (40128191)Chronic fatigue (R53.82) ActiveconfirmedProblemScreening for colon cancer (338080563)Screening for colon cancer (Z12.11)ActiveconfirmedProblemRestless legs (88725246)RLS (restless legs syndrome) (G25.81)ActiveconfirmedProblemAnal fissure (02816086)Anal fissure (K60.2)ActiveconfirmedProblemMixed anxiety and depressive disorder (165883949) Depression with anxiety (F41.8)ActiveconfirmedProblemNarcolepsy (53283074) Narcolepsy (G47.419)ActiveconfirmedProblemFamily history of malignant neoplasm of gastrointestinal tract (884055816)Family history of esophageal cancer (Z80.0) ActiveconfirmedProblemUlcer of esophagus (28836943)Esophageal ulcer without bleeding (K22.10)ActiveconfirmedProblemType II diabetes mellitus without complication (841386978)Type 2 diabetes mellitus without complication, without long-term current use of insulin (E11.9)ActiveconfirmedProblemCerebral cyst (40848209)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)ActiveconfirmedProblem Irritable bowel syndrome characterized by constipation (200315840)Irritable bowel syndrome with constipation (K58.1)ActiveconfirmedProblemHearing loss (56026794)Bilateral hearing loss, unspecified hearing loss type (H91.93)Active confirmedProblemLocalized, primary osteoarthritis of the shoulder region (877435424)Arthritis of left shoulder region (M19.012)ActiveconfirmedProblem Retained food in stomach (K31.89)ActiveconfirmedProblemAltered bowel function (75351746)Change in bowel movement (R19.8)ActiveconfirmedProblemBody mass index 40+ - severely obese (864163802)Body mass index [BMI] 45.0-49.9, adult (Z68.42) ActiveconfirmedProblemGastroesophageal reflux disease (350000169) Gastroesophageal reflux disease, unspecified whether esophagitis present (K21.9) ActiveconfirmedProblemChronic kidney disease stage 3A (151539209)Stage 3a chronic kidney disease (N18.31)ActiveconfirmedProblemalanine aminotransferase above reference range (finding) (702933097)Elevated ALT measurement (R74.01) ActiveconfirmedProblemEncounter for screening for COVID-19 (Z11.52)Active confirmed Vital Signs Heart Rate 89 /min 03/24/2025 weight down 9 p ounds in last month, BP up intially 146/102 Temperature 97.4 degrees Fahrenheit 10/22/2024 Respiratory Rate16 /min03/24/2025weight down 9 pounds in last month, BP up intially 146/941Ktvtyiem93 %03/24/2025weight down 9 pounds in last month, BP up intially 146/102Blood pressure ftxptegvj86 mm Hg03/24/2025weight down 9 pounds in last month, BP up intially 146/789Mvfrdn64 in03/24/2025weight down 9 pounds in last month, BP up intially 146/102Blood pressure qiiqgtpb483 mm Hg03/24/2025 weight down 9 pounds in last month, BP up intially 146/453Dmhmeb647.4 lbs 03/24/2025weight down 9 pounds in last month, BP up intially 146/205BAD63.94 kg/m203/24/2025weight down 9 pounds in last month, BP up intially 146/102 Encounters Encounter Location Date Provider Diagnosis [facility] [address] [place] [address] 02/19/2025 Heidi Guo Type 2 diabetes miranda itus without complication, without long-term current use of insulin E11.9 and Depression with anxiety F41.8 [facility] [address] [place] [address] 03/24/2025 Heidi Guo Depression with anxi ety F41.8 and Type 2 diabetes mellitus without complication, without long-term current use of insulin E11.9 [facility] Anaid MEADE [address] [place] [address] 10/22/2024 Kaya Hughes Gastroparesis K31.84 ; Gastroesophageal reflux disease, unspecified whether esophagitis present K21.9 ; Esophageal ulcer without bleeding K22.10 ; Epigastric pain R10.13 ; Change in bowel movement R19.8 ; Irritable bowel syndrome with constipation K58.1 ; Elevated ALT measurement R74.01 ; Fatty (change of) liver, not elsewhere classified K76.0 ; Iron deficiency anemia, unspecified D50.9 ; Other entertainment dancer (current) drug therapy Z79.899 ; Acute gastric ulcer without hemorrhage or perforation K25.3 and Melena K92.[address] [address] 07/26/2024 Shaq Merida Arthralgia of left temporomandibular joint M26.622 ; Type 2 diabetes mellitus without complication, without long-term current use of insulin E11.9 ; Morbid (severe) obesity due to excess calories E66.01 and Body mass index [BMI] 45.0-49.9, adult Z68.[address] [address] 01/20/2025 Heidiher Guo Type 2 diabetes miranda itus without complication, without long-term current use of insulin E11.9 ; Morbid (severe) obesity due to excess calories E66.01 ; Depression with anxiety F41.8 and Elevated ALT measurement R74.[address] [address] 06/26/2024 Heidi Guo Type 2 diabetes miranda itus without complication, without long-term current use of insulin E11.9 ; Depression with anxiety F41.8 ; Arachnoid cyst of pituitary gland G93.0 ; Morbid (severe) obesity due to excess calories E66.01 ; BMI 45.0-49.9, adult Z68.42 and Gastroesophageal reflux disease without esophagitis K21.[address] [address] 09/20/2024 Heidi Guo Type 2 diabetes miranda itus without complication, without long-term current use of insulin E11.9 ; Morbid (severe) obesity due to excess calories E66.01 ; Depression with anxiety F41.8 ; Furuncle, unspecified L02.92 and Elevated ALT measurement R74.01 [facility] [address] [place] [address] 10/22/2024 Lab Provider Radiology [facility] [place] [address] 11/26/2024Radiology ProviderFatty (change of) liver, not elsewhere classified K76.0[facility] [place] [address]/05/2024 [facility] diabetes mellitus without complication, without long-term current use of insulin E11.9 and Other abnormal glucose R73.09[facility] [place] [address]/03/2025Heather Lindstrom Depression with anxiety F41.8[facility] [id number] [facility] [place] [place] [address]/11/2024[facility] [id number] [facility] [place] [place] [address]/[facility] [id number] [facility] [place] [place] [address]/ [facility] [place] [address] 07/10/2024[facility] [place] [address]/[place] [address] [place] [address]/Heather [facility] [id number] [place] [address] 09/30/2024ntwagopi Atia Assessments Encounter Date Diagnosis (ICD Code) Assessment Notes Treatment Notes Treatment Clinical Notes Section Notes 12/06/2024 Depression with anxiety (ICD-10 - F41.8) 02/26/2025Other abnormal glucose (ICD-10 - R73.09)02/26/2025Type 2 diabetes mellitus without complication, without long-term current use of insulin (ICD-10 - E11.9)11/26/2024Fatty (change of) liver, not elsewhere classified (ICD-10 - K76.0)03/24/2025Depression with anxiety (ICD-10 - F41.8)stable, continue current meds1Type 2 diabetes mellitus without complication, without long-term current use of insulin (ICD-10 - E11.9)Sugars improving, continue CGM to monitor 02/19/2025Depression with anxiety (ICD-10 - F41.8)Refill of venlafaxine to [facility]02/19/2025Type 2 diabetes mellitus without complication, without long- term current use of insulin (ICD-10 - E11.9)REstart mwsteciyu81/29/2025 Depression with anxiety (ICD-10 - F41.8)Much improved since mother has been transferred to [place]06/26/2024Type 2 diabetes mellitus without complication, without long-term current use of insulin (ICD-10 - E11.9)A1c is well controlled, continue current meds09/20/2024Morbid (severe) obesity due to excess calories (ICD-10 - E66.01)09/20/2024Type 2 diabetes mellitus without complication, without long-term current use of insulin (ICD-10 - E11.9)Refills of rybelsus and bmqboprke40/27/2025Gastroparesis (ICD-10 - K31.84) Gastric emptying study revealed gastroparesis. Counseled patient on gastroparesis diet and provided patient with dietary guidelines from [facility]. Pt is taking Reglan to 5 mg TID 10/22/2024Gastroesophageal reflux disease, unspecified whether esophagitis present (ICD-10 - K21.9) Patient states she has heartburn and nausea. EGD showed esophageal ulcer. Gastric emptying study showed gastroparesis. SHe is taking Omeprazole QAM, Pepcid 40 mg nightly and Reglan TID 07/26/2024Type 2 diabetes mellitus without complication, without long-term current use of insulin (ICD-10 - E11.9) bs check daily diet/exercise monitor a1c eye exam yearly - dilated foot exam daily continue meds controlled 07/26/2024rthralgia of left temporomandibular joint (ICD-10 - M26.622) ?MRI rtc if not better continue bite guard but rec asking dentist for a custom one 01/20/2025Morbid (severe) obesity due to excess calories (ICD-10 - E66.01)Doing well since surgery - keep up the good work!01/20/2025Type 2 diabetes mellitus without complication, without long-term current use of insulin (ICD-10 - E11.9) Doing great since surgery!01/20/2025Depression with anxiety (ICD-10 - F41.8) stable, continue current med07/26/2024Morbid (severe) obesity due to excess calories (ICD-10 - E66.01)diet//27/2025Esophageal ulcer without bleeding (ICD-10 - K22.10) EGD showed esophageal ulcer, repeat in 2 months to confirm healing. Repeat EGD showed healing. RESOLVED 09/20/2024Depression with anxiety (ICD-10 - F41.8)06/26/2024rachnoid cyst of pituitary gland (ICD-10 - G93.0)REfill of nliballrxphajo30/29/2025Morbid (severe) obesity due to excess calories (ICD-10 - E66.01)Keep appt with Dr. Cobos's group, to start process again [facility]Furuncle, unspecified (ICD-10 - L02.92)start doxycycline for boil under left htdwoa0710/22/2024Epigastric pain (ICD-10 - R10.13) Patient reports intermittent epigastric pain for the last 1-2 months. Pain is unrelated to eating or defecation. CT scan abd/pelvis showed small hernia, otherwise unremarkable. Advised patient to take Bentyl only as needed to prevent worsening constipation. Will repeat CT abd/pelvis Will order CBC, iron studies 04/08/24: CT scan showed fatty liver, cholecystectomy and small umbilical hernia. Pt is taking Reglan TID. She reports resolution of nausea, epigastric pain and bloating since resuming Reglan. 07/26/2024ody mass index [BMI] 45.0-49.9, adult (ICD-10 - Z68.42)01/20/2025 Elevated ALT measurement (ICD-10 - R74.01)vcwgsr6810/22/2024hange in bowel movement (ICD-10 - R19.8) Colonoscopy negative for etiology. She tried and failed Linzess 72 mcg due to diarrhea. She notes constipation on iron supplement. She has D/C bentyl. Take Miralax PRN. 09/20/2024Elevated ALT measurement (ICD-10 - R74.01)5BMI 45.0-49.9, adult (ICD-10 - Z68.42)06/26/2024Gastroesophageal reflux disease without esophagitis (ICD-10 - K21.9)STable, continue PPI10/22/2024Irritable bowel syndrome with constipation (ICD-10 - K58.1)* See above.10/22/2024Elevated ALT measurement (ICD-10 - R74.01) Patient's lab work show she has an elevated ALT of 37. Markers for liver disease revealed mild iron deficiency, patient was not immune to hepatitis A or Band was advised obtain vaccines. Started patient on vitamin E 400 units twice daily. CMP WNL (11/2023). 10/22/2024Fatty (change of) liver, not elsewhere classified (ICD-10 - K76.0) CT scan showed fatty liver, cholecystectomy and small umbilical hernia. Advised to continue taking Vitamin E BID Counselled patient on fatty liver including diet and exercise including Mediterranean diet Will order liver elastography 10/22/2024Iron deficiency anemia, unspecified (ICD-10 - D50.9) Lab work showed iron deficiency anemia and patient was started on gentle iron. VCE was negative for etiology of ABIGAIL. 10/22/2024Other entertainment dancer (current) drug therapy (ICD-10 - Z79.899)CBC w/ diff, CMP, iron studies, vitamin b12/folate, vitamin D, Mg WNL5Acute gastric ulcer without hemorrhage or perforation (ICD-10 - K25.3)Patient had a prior EGD at [facility] in May 2023 was negative for gastric ulcer.10/22/2024Melena (ICD-10 - K92.1) Lab work showed iron deficiency anemia and patient was started on gentle iron. She continues to experience intermittent black stools VCE was negative for etiology. 10/22/2024Other Thank you Dr. Guo for your referral. Colonoscopy negative for dysplastic polyps, repeat in 7-10 years Patient states her grandmother hadesophageal cancer. Plan Of Treatment Pending Test Test Name Order Date CMP (COMPLETE METABOLIC PANEL) 3 CMP (COMPLETE METABOLIC PANEL) 3 CMP (COMPLETE METABOLIC PANEL) 4 CULTURE, STOOL 04/14/2021 CULTURE, STOOL 01/20/2022 CULTURE, STOOL 03/29/2022 FERRITIN 06/20/2022 MAGNESIUM 09/05/2023 OVA and PARASITES (O and P STOOL) 2021 OVA and PARASITES (O and P STOOL) 2021 OVA and PARASITES (O and P STOOL) 2020 IRON AND TIBC (WITH SAT) 06/20/2022 CBC WITH DIFF (EXP 03/2025) 08/03/2022 CBC WITH DIFF (EXP 03/2025) 09/05/2023 BMP (BASIC MET PANEL - W/GFR) 03/06/2023 OCCULT BLOOD, STOOL 1-3 SAMPLE 4 LIVER (HEPATIC) PANEL 10/02/2023 VITAMIN D, 25 LEVEL (TOTAL) 09/05/2023 Split Night Sleep Study 10/26/2022 CT Abdomen and Pelvis w/contrast * 05/11 CPAP Titration 12/06/2022 MSLT 07/31/2023 C DIFF TOX PCR STOOL 04/14/2021 C DIFF TOX PCR STOOL 01/20/2022 C DIFF TOX PCR STOOL 03/29/2022 COVID 19 SWAB RT-PCR (OPS ONLY) 07/30/19 CPAP Re Titration 07/31/2023 IRON, TIBC w SAT AND FERRITIN 09/05/2023 VITAMIN B12 LEVEL AND FOLATE (FOLIC ACID ) 09/05/2023 Next Appt Details Provider Name:Kaya viramontes, 05/09/2025 02:15:00 PM, [id number] , [facility], [place], [address], Provider Name:Heidi pope, 06/02/2025 02:30:00 PM, [address] [place], [address], Insurance Providers Payer Name Payer Address Payer Phone Subscriber Number Group Number Insured Name Patient Relationship to Insured Coverage Start Date Coverage End Date [employer] [address] [address] [place] [address] [id number] Tamika Walters - patient is the [id number] 2024 Medications Administered Medication Instructions Date of Administration Dosage Notes Chocoalog-40 mL Medical (General) History Medical History History ICD Code Diabetes Type 2 HTNAnxiety/depressionArachnoid cyst of pituitary glandCOVID 12/15Esophageal ulcers on EGD 05/18, healed 07/20Elevated prolactinSurgical History Surgery Date(Month/Year) Lap cholecystectomy- Dr. Collazo 09/16/08 tubal ligation 2x csectiongastric bypass12/31/20241661KRB89/2024colon w banding06/2022EGD - stomach ulcers healed!07/20colonoscopy / EGD - Dr. Patight knee loorlnq37/2021 Hospitalization History Reason Date(Month/Year) Jaw pain 06/2024 Hypertensive urgency, found pituitary [facility] [place] 03/11
--- OUTSIDE RECORDS SUMMARY | 2025-04-22 19:40 | XMS_ITS | Clinical Summary ---
Author Organization [employer] Address [id number] [address] [place] [address] Care Team Providers Care Warehouse Sorter Name Role Phone Heidi Guo MD Primary Care Provider + [phone] Allergies Active AllergyReactionsCriticalityNoted DateComments Ahgfopbrrkup-Cjx-ZesnavhjwmcxwEuboivvkm Of DmjmawLnwh14/27/2019 shakes KhtujdvhMdxiIuo41/27/6346ImsiucugubjFejjUea51/27/2019ShrimpShortness Of Breath High04/24/2019 Jittery Acetaminophen-CodeineShortness Of KunihpXmly83/27/2019 Medications MedicationSigDispense QuantityRefillsLast FilledStart DateEnd DateStatus metFORMIN (GLUCOPHAGE) 1000 mg tablet Take 1,000 mg by mouth 2 (two) times a day with meals.Active lisinopril-hydroCHLOROthiazide (PRINZIDE,ZESTORETIC) 20-25 mg per tablet Take 1 tablet by mouth daily.Active glipiZIDE (GLUCOTROL) 10 mg tablet Take 10 mg by mouth daily.Active spironolactone (ALDACTONE) 100 mg tablet Take 100 mg by mouth daily.Active sertraline (ZOLOFT) 100 mg tablet Take 200 mg by mouth daily.Active semaglutide (OZEMPIC) 0.25 mg or 0.5 mg(2 mg/1.5 mL) pen injector Inject 0.25 mg under the skin every 7 days.Active semaglutide (RYBELSUS) 14 mg tablet Take 14 mg by mouth in the morning.Active metoclopramide (REGLAN) 5 mg tablet Take 1 tablet (5 mg total) by mouth in the morning and 1 tablet (5 mg total) at noon and 1 tablet (5 mg total) in the evening and 1 tablet (5 mg total) before bedtime.Active omeprazole (PriLOSEC OTC) 20 mg EC tablet Take 1 tablet (20 mg total) by mouth in the morning.Active cyanocobalamin (vitamin B-12) 1000 MCG tablet Take 1 tablet (1,000 mcg total) by mouth in the morning.Active vitamin E, dl,tocopheryl acet, (vitamin E, dl, acetate,) 180 mg (400 unit) capsule Take 1 capsule (400 Units total) by mouth in the morning.Active ferrous sulfate 325 (65 FE) mg EC tablet Take 1 tablet (325 mg total) by mouth in the morning and 1 tablet (325 mg total) at noon and 1 tablet (325 mg total) in the evening. Take with meals.Active cholecalciferol, vitamin D3, (VITAMIN D3) 5,000 units capsule Take 2 capsules (10,000 Units total) by mouth in the morning.Active Active Problems ProblemNoted DateDiagnosed DatePreop cardiovascular exam1Essential zyiclwmmaqnh81/11/2021 Family History Medical HistoryRelationNameCommentsDiabetesFatherHeart diseaseFatherHypertension FatherBreast cancerMaternal AuntDementiaMotherHyperlipidemiaMotherHypertension MotherRelationNameStatusCommentsFatherDeceasedMaternal AuntMotherAlive Social History Tobacco UseTypesPacks/DayYears UsedDateSmoking Tobacco: NeverSmokeless Tobacco: NeverAlcohol UseStandard Drinks/WeekCommentsNever0 (1 standard drink = 0.6 oz pure alcohol)ChildcareAnswerDate PjwzbmndOzyjbodelIwrjrlt94/12/2019Employment AnswerDate LsbljyddFwpgzoqmirNyfarez66/12/2019Hunger ScreeningAnswerDate RecordedWithin the past 12 months we worried whether our food would run out before we got money to buy more.Never True07/12/2024Within the past 12 months the food we bought just didn't last and we didn't have money to get more.Never True07/12/2024Purpose - LifeAnswerDate RecordedPurpose and direction in life Vszyupg34/11/2021CommentsNoSex and Gender InformationValueDate Recorded Sex Assigned at BirthNot on fileLegal HyhUrpxze69/06/2015 11:47 AM EDTGender IdentityNot on fileSexual OrientationNot on file Last Filed Vital Signs Vital SignReadingTime TakenCommentsBlood Mapyobia163/9107/12/2024 1:23 PM EST Mdtdb465107/12/2024 1:23 PM WKPGmqiccthhnx51.8 ??C (98.3 ??F)07/12/2024 1:23 PM ESTRespiratory Xtif833507/12/2024 1:23 PM ESTOxygen Bqotndlqkn65%07/12/2024 1:23 PM ESTInhaled Oxygen Concentration--Ptibho586.4 kg (239 lb)07/12/2024 1:23 PM UGZZysmmi392.4 cm (5')07/12/2024 1:23 PM ESTBody Mass Index46.68007/12/2024 1:23 PM EST Plan of Treatment Health MaintenanceDue DateLast DoneCommentsDepression Htnlfjquf34/21/1982Adult BMI Follow Up Plan1988DTaP,Tdap and Td Vaccines (1 - Tdap)1989Pap Smear1991Zoster (Shingles) Vaccine (1 of 2)2020COVID-19 Vaccine (3 - season)/, 10/15/2020Influenza Nhmdcjn7101/27/2025 03/11/2019Adult BMI Jxpfvtkkg12Tobacco Kbvwqvgyy48/14/2026 07/12/2024 Medical Devices Not on file Insurance * Guarantor: Taylor Schultz TypeRelation to PatientDate of BirthPhoneBilling OfeamjeKzjjvoLyky[address] [place], [place] [id number] Care Teams Team MemberRelationshipSpecialtyStart DateEnd Heidi Guo MD [address] [place] [phone] PCP - GeneralFavaly Medicine11/08/16
== END 2025-04-22 19:35 | disposition home or self-care (01) ==
LOC: LAB 19:34
PROVIDERS: Family Provider Family Medicine; Visit Provider Obstetrics & Gynecology
DX: Z01.419 Encounter for gynecological examination (general) (routine) without abnormal findings (principal)
CPT/HCPCS: 88175